=== PATIENT | female | born 1975 | race Hispanic/Latino ===

== ENCOUNTER 2022-01-29 15:52 | Emergency (ER) | payer BC ==
[~2022-01-29] VITALS: Ht 149.9 cm; Wt 67.6 kg
[2022-01-29] MEDS ORDERED: ACETAMINOPHEN 325 MG TAB PO ONE (16:45)
[2022-01-29] MEDS ORDERED: KETOROLAC TROMETHAMINE 30 MG/ML VIAL IV STA (16:45)
[2022-01-29] MEDS ORDERED: SODIUM CHLORIDE 0.9% 1000ML 1,000 ML IV SCH (16:45)
[2022-01-29] MEDS ORDERED: LISINOPRIL5 MG PO (18:18)
[2022-01-29] MEDS ORDERED: METFORMIN HCL500 MG PO (18:19)
[2022-01-29] MEDS ORDERED: FIORICET 50-301 EACH PO (18:20)
[2022-01-29 18:35] VITALS: BP 138/78
== END 2022-01-29 18:37 | disposition home or self-care (01) ==
LOC: FSED 16:10
DX: E11.65 Type 2 diabetes mellitus with hyperglycemia (principal); G44.209 Tension-type headache, unspecified, not intractable; R11.0 Nausea; R03.0 Elevated blood-pressure reading, without diagnosis of hypertension
CPT/HCPCS: 70450; 96374; 96376; 99284; J1885; J7030

== ENCOUNTER 2022-07-20 21:44 | Emergency (ER) | payer BC ==
[~2022-07-20] VITALS: Ht 149.9 cm; Wt 65.8 kg
[~2022-07-20 21:44] MED LIST: FIORICET 50-301 EACH PO; LISINOPRIL5 MG PO; METFORMIN HCL500 MG PO
[2022-07-20] MEDS ORDERED: TAMIFLU75 MG PO (22:49)
[2022-07-20] MEDS ORDERED: AZITHROMYCIN250 MG PO (22:49)
== END 2022-07-20 23:15 | disposition home or self-care (01) ==
LOC: FSED 22:25
DX: R05.9 Cough, unspecified (principal); B34.9 Viral infection, unspecified; R11.0 Nausea
CPT/HCPCS: 83518; 87400; 99283

== ENCOUNTER 2022-11-11 09:58 | Emergency (ER) | payer BC ==
[~2022-11-11] VITALS: Ht 149.9 cm; Wt 65.8 kg
[~2022-11-11 09:58] MED LIST changes: +AZITHROMYCIN250 MG PO; +TAMIFLU75 MG PO
[2022-11-11] MEDS ORDERED: TRIJARDY XR 121 EACH (10:34)
[2022-11-11] MEDS ORDERED: ONDANSETRON HCL INJ 2MG/ML 2ML 2 MG/ML VIAL IV STA (11:18)
[2022-11-11] MEDS ORDERED: FAMOTIDINE 20 MG/2 ML VIAL IV STA (11:18)
[2022-11-11] MEDS ORDERED: SODIUM CHLORIDE 0.9% 1000ML 1,000 ML IV SCH (11:30)
[2022-11-11] MEDS ORDERED: IOPAMIDOL 370 MG/ML 100 ML INFUS..BTL INJ ONE (11:47)
== END 2022-11-11 13:26 | disposition home or self-care (01) ==
LOC: FSED 10:21
DX: R10.13 Epigastric pain (principal); K59.00 Constipation, unspecified; K86.2 Cyst of pancreas; E11.65 Type 2 diabetes mellitus with hyperglycemia; Z79.84 Long term (current) use of oral hypoglycemic drugs; Z79.899 Other long term (current) drug therapy
CPT/HCPCS: 74177; 80048; 80076; 81003; 82553; 84484; 85025; 93005; 96374; 96375; 99284; J2405; J7030; Q9967